=== PATIENT | male | born 1995 | race Caucasian/White ===

== ENCOUNTER 2021-10-18 08:13 | Emergency (ER) | payer OTHER ==
[~2021-10-18] VITALS: Ht 190.5 cm; Wt 100.0 kg
[2021-10-18 08:14] VITALS: BP 119/59
[2021-10-18 08:56] LABS: BASO % 0.4 % (0.0-1.0); EOS # 0.1 10^3/uL (0.0-0.5); HEMATOCRIT 49.2 % (42.0-52.0); HEMOGLOBIN 17.8 g/dl (13.5-17.5); LYMPH # 0.4 10^3/uL (1.5-5.0); LYMPH % 3.5 % (24.0-44.0); MEAN CORPUSCULAR HEMOGLOBIN 32.4 pg (27.0-33.0); MEAN CORPUSCULAR HGB CONC 36.2 g/dl (32.0-36.5); MEAN CORPUSCULAR VOLUME 89.6 fl (80.0-96.0); MONO # 0.7 10^3/uL (0.0-0.8); MONO % 6.3 % (2.0-8.0); NEUTROPHILS % 88.5 % (36.0-66.0); PLATELET COUNT, AUTOMATED 227 10^3/uL (150-450); RED BLOOD COUNT 5.49 10^6/uL (4.30-6.10); WHITE BLOOD COUNT 11.3 10^3/uL (4.0-10.0)
[2021-10-18] MEDS ORDERED: ONDANSETRON 4MG/2ML VIAL IV ONE (09:20)
[2021-10-18] MEDS ORDERED: NS 1,000 ML IV ONE ×2 (09:20→10:50)
[2021-10-18 09:24] LABS: ALBUMIN 4.2 GM/DL (3.2-5.2); ALT/SGPT 90 U/L (12-78); BILIRUBIN,DIRECT 0.3 MG/DL (0.0-0.2); BILIRUBIN,TOTAL 1.2 MG/DL (0.2-1.0); BLOOD UREA NITROGEN 19 MG/DL (7-18); CALCIUM LEVEL 9.2 MG/DL (8.5-10.1); CARBON DIOXIDE LEVEL 24 MEQ/L (21-32); CHLORIDE LEVEL 110 MEQ/L (98-107); CREATININE FOR GFR 0.99 MG/DL (0.70-1.30); GLOMERULAR FILTRATION RATE > 60.0 (>60); GLUCOSE, FASTING 110 MG/DL (70-100); LIPASE 75 U/L (73-393); POTASSIUM SERUM 4.4 MEQ/L (3.5-5.1); SODIUM LEVEL 140 MEQ/L (136-145); TOTAL PROTEIN 7.3 GM/DL (6.4-8.2)
[2021-10-18] MEDS ORDERED: ONDA4TAB6 PO (12:24)
== END 2021-10-18 13:00 | disposition home or self-care (01) ==
LOC: M ED 08:13
DX: A08.11 Acute gastroenteropathy due to Norwalk agent (principal)
CPT/HCPCS: 80048; 80076; 83690; 85025; 87505; 96361; 96374; 99284; J2405

== ENCOUNTER 2023-07-09 14:44 | Emergency (ER) | payer OTHER ==
[~2023-07-09] VITALS: Ht 190.5 cm; Wt 118.5 kg
[~2023-07-09 14:44] MED LIST: APAP325T4 PO; ONDA4TAB6 PO
[2023-07-09] MEDS ORDERED: dexAMETHasone 20MG/5ML VIAL IV ONE (17:35)
[2023-07-09] MEDS ORDERED: METOCLOPRAMIDE INJ 10MG/2ML VIAL IV ONE (17:35)
[2023-07-09] MEDS ORDERED: diphenhydrAMINE 50MG/ML VIAL IV ONE (17:35)
[2023-07-09 18:06] LABS: BASO # 0.1 10^3/uL (0.0-0.2); BASO % 0.9 % (0.0-1.0); EOS # 0.8 10^3/uL (0.0-0.5); EOS % 9.2 % (0.0-3.0); HEMATOCRIT 45.3 % (42.0-52.0); HEMOGLOBIN 16.4 g/dl (13.5-17.5); LYMPH # 2.6 10^3/uL (1.5-5.0); LYMPH % 32.2 % (24.0-44.0); MEAN CORPUSCULAR HEMOGLOBIN 33.1 pg (27.0-33.0); MEAN CORPUSCULAR HGB CONC 36.2 g/dl (32.0-36.5); MEAN CORPUSCULAR VOLUME 91.5 fl (80.0-96.0); MONO # 0.7 10^3/uL (0.0-0.8); MONO % 8.7 % (2.0-8.0); NEUTROPHILS % 48.8 % (36.0-66.0); PLATELET COUNT, AUTOMATED 250 10^3/uL (150-450); RED BLOOD COUNT 4.95 10^6/uL (4.30-6.10); WHITE BLOOD COUNT 8.1 10^3/uL (4.0-10.0)
[2023-07-09 18:19] LABS: ERYTHROCYTE SEDIMENTATION RATE 3 mm/hr (0-15)
[2023-07-09 18:27] LABS: C REACTIVE PROTEIN QUANTITATIV < 0.40 MG/DL (<1.0)
[2023-07-09 18:28] LABS: BLOOD UREA NITROGEN 14 MG/DL (9-23); CARBON DIOXIDE LEVEL 27 MMOL/L (20-31); CHLORIDE LEVEL 105 MMOL/L (98-107); CREATININE FOR GFR 0.81 MG/DL (0.70-1.30); GLOMERULAR FILTRATION RATE > 60.0 (>60); GLUCOSE, FASTING 88 MG/DL (60-100); SODIUM LEVEL 139 MMOL/L (136-145)
[2023-07-09] MEDS ORDERED: AMOX875T2 PO (18:51)
[2023-07-09 19:00] VITALS: BP 131/67; TEMP 98.1; O2SAT 100
== END 2023-07-09 19:02 | disposition home or self-care (01) ==
LOC: M ED 14:44
DX: J01.90 Acute sinusitis, unspecified (principal)
CPT/HCPCS: 70450; 80048; 85025; 85652; 86140; 96374; 96375; 99284; J1100; J1200; J2765

== ENCOUNTER → 2023-10-17 | Outpatient (CLI) | payer OTHER ==
[~2023-10-17] MED LIST changes: +AMOX875T2 PO
== END ==
LOC: M RAD 08:26
PROVIDERS: ATTEND Otolaryngology
DX: J32.8 Other chronic sinusitis (principal); J34.2 Deviated nasal septum

== ENCOUNTER → 2023-12-29 | Outpatient (REF) | LOC: M PLAIMG 09:10 | PROVIDERS: ATTEND Internal Medicine | DX: R06.02 Shortness of breath (principal) ==